=== PATIENT | female | born 1990 | race Two or more races ===

== ENCOUNTER 2021-01-31 09:23 | Emergency (ER) | payer OTHER ==
[~2021-01-31] VITALS: Ht 162.6 cm; Wt 68.0 kg
== END 2021-01-31 15:36 | disposition home or self-care (01) ==
LOC: ER 09:23
DX: O03.4 Incomplete spontaneous abortion without complication (principal)

== ENCOUNTER 2021-09-27 11:16 | Outpatient (CLI) | payer OTHER | END 2021-09-27 16:30 | disposition home or self-care (01) | LOC: PRENATAL 11:16 | PROVIDERS: ATTEND Obstetrics & Gynecology Maternal & Fetal Medicine | DX: Z36.89 Encounter for other specified antenatal screening (principal); O36.80X1 Pregnancy with inconclusive fetal viability, fetus 1; Z3A.14 14 weeks gestation of pregnancy ==

== ENCOUNTER 2021-11-21 13:42 | Outpatient (CLI) | payer OTHER | END 2021-11-21 14:59 | disposition home or self-care (01) | LOC: PRENATAL 13:42 | PROVIDERS: ATTEND Obstetrics & Gynecology Maternal & Fetal Medicine | DX: O35.0XX1 Maternal care for (suspected) central nervous system malformation in fetus, fetus 1 (principal); O35.3XX1 Maternal care for (suspected) damage to fetus from viral disease in mother, fetus 1; O98.512 Other viral diseases complicating pregnancy, second trimester; Z36.89 Encounter for other specified antenatal screening; Z3A.22 22 weeks gestation of pregnancy ==

== ENCOUNTER 2022-02-08 13:56 | Outpatient (CLI) | payer OTHER | END 2022-02-08 14:33 | disposition home or self-care (01) | LOC: PRENATAL 13:56 | PROVIDERS: ATTEND Obstetrics & Gynecology Maternal & Fetal Medicine | DX: O26.849 Uterine size-date discrepancy, unspecified trimester (principal); O35.0XX0 Maternal care for (suspected) central nervous system malformation in fetus, not applicable or unspecified; Z3A.35 35 weeks gestation of pregnancy ==